=== PATIENT | female | born 1980 | race Caucasian/White ===

== ENCOUNTER 2023-05-21 08:12 | Emergency (ER) | payer MEDICAID, SELFPAY ==
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
[2023-05-21 08:15] VITALS: BP 143/95; PULSE 85; RESP 20; TEMP 36.4; O2SAT 98; BMI 29.3
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
[2023-05-21] MEDS: oxyCODONE HCl Immed Release 5 MG TABLET PO (09:20)
[2023-05-21] MEDS: Cyclobenzaprine HCl 10 MG TABLET PO (09:20)
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
[2023-05-21 09:58] LABS: Appearance Urine Clear; Color Urine Yellow; Glucose Urine UA Negative (Negative); Leukocyte Esterase Urine Trace (Negative); Nitrite Urine Negative (Negative); Specific Gravity - Urine 1.015 (1.005-1.025); UMIC TRIGGER UACC YES; UPreg QC Valid YES; Urine Blood Small (1+) (Negative); Urine Ketones Negative (Negative); Urine Pregnancy NEGATIVE (NEGATIVE); Urine Protein Negative (Neg-Trace)
[2023-05-21 10:09] LABS: Bacteria Urine None Seen (None Seen); Hyaline Casts Urine 0-2 /LPF (0-2); WBC Urine 0-5 /HPF (0-5)
[2023-05-21 11:12] VITALS: BP 155/88; PULSE 64; RESP 16; TEMP 36.8; O2SAT 96
== END 2023-05-21 11:38 | disposition home or self-care (01) ==
PROVIDERS: Registered Nurse Emergency; Emergency Provider Student in an Organized Health Care Education/Training Program
DX: S20.219A Contusion of unspecified front wall of thorax, initial encounter (principal); S00.83XA Contusion of other part of head, initial encounter; V89.2XXA Person injured in unspecified motor-vehicle accident, traffic, initial encounter; Y93.9 Activity, unspecified; Y92.411 Interstate highway as the place of occurrence of the external cause; Y99.9 Unspecified external cause status
CPT/HCPCS: 70450; 71046; 81001; 81025; 93005; 99284

== ENCOUNTER → 2023-05-21 09:53 | Outpatient (BNV) | payer MEDICAID, SELFPAY | PROVIDERS: Emergency Provider Student in an Organized Health Care Education/Training Program; Visit Provider Internal Medicine Cardiovascular Disease | DX: R00.1 Bradycardia, unspecified (principal) | CPT/HCPCS: 93010 ==

== ENCOUNTER 2023-06-02 17:42 | Emergency (ER) | payer MEDICAID, SELFPAY ==
[2023-06-02 18:05] VITALS: BP 101/80; PULSE 72; RESP 18; TEMP 36.6; O2SAT 98; BMI 27.5
--- NOTE | 2023-06-02 18:19 | ED_ITS ---
HPI - General Adult General Chief complaint: Head Injury Stated complaint: fell t-1, head inj on concrete Related Data Previous Rx's Medication Instructions Recorded cyclobenzaprine 5 mg tablet 5 mg PO TID PRN muscle spasm #10 05/21/23 tabs lidocaine 5 % topical patch 1 patch topical DAILY #15 ea 05/21/23 Allergies Allergy/AdvReac Type Severity Reaction Status Date / Time ibuprofen [From Motrin] Allergy Chest Pain Verified 06/02/23 18:11 [facility] Social History Social History Smoked in Last 30 Days: Yes Use of substances other than those prescribed or required for medical reasons: Yes Substance Use Type: Crack/Cocaine and Marijuana Advance Directives: No Advance Directives Information Provided: No Patient : No Physical Exam ED Vital Signs: Vital Signs - 24 hr 06/02/23 18:05 Temperature 97.9 F Pulse Rate 72 Respiratory Rate 18 Blood Pressure 101/80 Pulse Oximetry 98 Oxygen Delivery Method Room Air BMI result Body Mass Index 27.5 Course Course Course Narrative: RME: 42 yold female presents to the ED for falling hitting head. Patient climbed over a fence and fell onto her head. Patient denies loss of consciousness. Patient denies any other complaint. Head CT cervical spine CT ordered. Rest of exam to be done by ED provider Medications Administered Discontinued Medications Generic Name Dose Route Start Last Admin Trade Name Freq PRN Reason Stop Dose Admin Acetaminophen 650 mg 06/02/23 18:12 06/02/23 18:15 Acetaminophen 325 Mg Tablet PO 06/02/23 18:13 650 mg ONCE ONE Administration Discharge Plan Discharge Clinical Impression: Closed head injury Patient Disposition: Left W/O Completing Treatment Prescriptions: No Action lidocaine 5 % adhesive patch,medicated 1 patch topical DAILY Qty: 15 0RF Rx Instructions: leave on most painful area for up to 12 hrs cyclobenzaprine 5 mg tablet 5 mg PO TID PRN (Reason: muscle spasm) Qty: 10 0RF Discharge Date/Time: 06/03/23 03:49
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
== END 2023-06-03 03:49 | disposition home or self-care (01) ==
PROVIDERS: Emergency Provider Emergency Medicine
DX: S09.90XA Unspecified injury of head, initial encounter (principal); W18.09XA Striking against other object with subsequent fall, initial encounter; Y93.39 Activity, other involving climbing, rappelling and jumping off; Y92.096 Garden or yard of other non-institutional residence as the place of occurrence of the external cause; Y99.9 Unspecified external cause status
CPT/HCPCS: 70450; 72125; 99282; 99284

== ENCOUNTER 2023-06-02 23:54 | Emergency (ER) | payer MEDICAID, SELFPAY ==
[2023-06-03 00:22] VITALS: BP 154/84; PULSE 73; O2SAT 99; BMI 30.3
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
--- NOTE | 2023-06-03 01:24 | MHC.EDTECH ---
patient changed over belongings in
--- NOTE | 2023-06-03 01:40 | PC.NURSE ---
Pt reports that she took cocaine and weed today. When asked if she takes any othe drugs she stated i add the black powder to my weed to make the high better
--- NOTE | 2023-06-03 01:59 | PC.NURSE ---
pt sleeping at this time, will hold off on tylenol
[2023-06-03 08:16] VITALS: BP 160/83; PULSE 64; RESP 20; TEMP 36.7; O2SAT 97
--- NOTE | 2023-06-03 08:46 | PC.NURSE ---
Patient discharged and escorted to [facility] for belongings by security. Gait steady
== END 2023-06-03 08:46 | disposition still patient (30) ==
PROVIDERS: Emergency Provider Emergency Medicine
DX: S09.90XA Unspecified injury of head, initial encounter (principal); R51.9 Headache, unspecified; M54.2 Cervicalgia; F14.19 Cocaine abuse with unspecified cocaine-induced disorder; W01.10XA Fall on same level from slipping, tripping and stumbling with subsequent striking against unspecified object, initial encounter; Y93.9 Activity, unspecified; Y92.9 Unspecified place or not applicable; Y99.9 Unspecified external cause status
CPT/HCPCS: 70450; 72125; 96372; 99284; J2060